=== PATIENT | male | born 1940 | race Caucasian/White ===

== ENCOUNTER 2021-03-21 05:57 | Day surgery (SDC) | payer OTHER, SELFPAY ==
[2021-03-13 13:43] LABS: BASOPHILS # (AUTO) 0.1 K/uL (0.00-0.22); BASOPHILS % (AUTO) 0.9 % (0.0-2.0); EOSINOPHILS # (AUTO) 0.3 K/uL (0-0.4); EOSINOPHILS % (AUTO) 4.4 % (0.0-4.0); HEMATOCRIT 41.1 % (36-52); HEMOGLOBIN 13.6 g/dL (12.0-18.0); LYMPHOCYTES % (AUTO) 14.7 % (20.5-51.1); MEAN CORPUSCULAR HEMOGLOBIN 31 pg (27-31); MEAN CORPUSCULAR HGB CONC 33 g/dL (33-37); MEAN CORPUSCULAR VOLUME 92.6 fL (80-94); MONOCYTES # (AUTO) 0.6 K/uL (0.8-1.0); MONOCYTES % (AUTO) 8.4 % (1.7-9.3); NEUTROPHILS # (AUTO) 4.8 K/uL (1.8-7.7); NEUTROPHILS % (AUTO) 71.6 % (42.2-75.2); PLATELET COUNT (AUTO) 235 K/uL (140-450); RED BLOOD CELL COUNT(AUTO) 4.45 MIL/uL (4.20-6.10); RED CELL DISTRIBUTION WIDTH 15.2 % (11.6-13.7); WHITE BLOOD COUNT (AUTO) 6.8 K/uL (4.8-10.8)
[2021-03-13 14:05] LABS: ALBUMIN 3.5 g/dL (3.4-5.0); ANION GAP 12.2 (8-16); ASPARTATE AMINOTRANSFERASE 21 U/L (15-37); CHLORIDE 110 mmol/L (98-107); CREATININE 2.4 mg/dL (0.6-1.3); GLUCOSE 107 mg/dL (74-106); POTASSIUM 4.2 mmol/L (3.5-5.1); PROTHROMBIN TIME 11.7 secs (10.8-13.4); SODIUM SERUM 143 mmol/L (136-145); TOTAL BILIRUBIN 0.6 mg/dL (0.0-1.0); UREA NITROGEN, BLOOD 22 mg/dL (7-18)
[~2021-03-21] VITALS: Ht 175.3 cm; Wt 81.6 kg
[2021-03-21] MEDS ORDERED: ceFAZolin 1,000 MG VIAL ONE ×2 (07:16→07:40)
[2021-03-21] MEDS ORDERED: BUPIVACAINE-MPF 0.5% 10 ML VIAL INJ ONE ×2 (07:24→07:40)
[2021-03-21] MEDS ORDERED: LIDOCAINE MPF 1% 0 ML ONE (07:24)
[2021-03-21] MEDS ORDERED: METOCLOPRAMIDE 10 MG/2 ML INJ VIAL ONE (07:40)
[2021-03-21] MEDS ORDERED: MIDAZOLAM 2 MG/2 ML VIAL ONE (07:40)
[2021-03-21] MEDS ORDERED: DEXAMETHASONE 4 MG/ML VIAL ONE (07:40)
[2021-03-21] MEDS ORDERED: ONDANSETRON 4 MG/2 ML VIAL ONE (07:40)
[2021-03-21] MEDS ORDERED: LIDOCAINE MPF 1% 15 ML ONE (07:40)
[2021-03-21] MEDS ORDERED: PROPOFOL 200 MG/20 ML VIAL IV ONE (07:40)
[2021-03-21] MEDS ORDERED: KETOROLAC 30 MG/ML VIAL ONE (07:40)
[2021-03-21] MEDS ORDERED: fentaNYL citrate 0.05 MG/ML VIAL ONE (07:40)
[2021-03-21] MEDS ORDERED: LIDOCAINE 2% 100 MG/5 ML SYR IVP ONE (07:40)
[2021-03-21] MEDS ORDERED: MEPERIDINE 25 MG/ML SYR IVP PRN (08:35)
[2021-03-21] MEDS ORDERED: ONDANSETRON 4 MG/2 ML VIAL IVP PRN (08:35)
[2021-03-21] MEDS ORDERED: diphenhydrAMINE 50 MG/ML VIAL IVP PRN (08:35)
[2021-03-21] MEDS ORDERED: BLOOD GLUCOSE MONITORING 1 DEV DEV FS SCH (08:35)
[2021-03-21] MEDS ORDERED: HYDROmorphone 1 MG/ML AMP IVP PRN (08:35)
== END 2021-03-21 11:20 | disposition home or self-care (01) ==
LOC: MDS 05:57 → MMU 06:07 → MDS 11:20
PROVIDERS: ATTEND Podiatrist Foot & Ankle Surgery
DX: M14.672 Charcot's joint, left ankle and foot (principal); I25.10 Atherosclerotic heart disease of native coronary artery without angina pectoris; I25.2 Old myocardial infarction; G47.33 Obstructive sleep apnea (adult) (pediatric); Z99.89 Dependence on other enabling machines and devices; Z95.5 Presence of coronary angioplasty implant and graft; Z79.01 Long term (current) use of anticoagulants; Z79.899 Other long term (current) drug therapy
CPT/HCPCS: 28104; 36415; 71045; 73630; 80053; 85025; 85610; 85730; 87426; 88304; 88311; J0690; J1100; J1885; J2001; J2250; J2405; J2704; J2765; J3010; J3490; J7030; J7060

== ENCOUNTER 2021-05-26 10:29 | Outpatient (CLI) | payer OTHER | END 2021-05-26 19:47 | disposition home or self-care (01) | LOC: MRD 10:29 | PROVIDERS: ATTEND Podiatrist Foot & Ankle Surgery | DX: M47.816 Spondylosis without myelopathy or radiculopathy, lumbar region (principal); M51.06 Intervertebral disc disorders with myelopathy, lumbar region; M43.16 Spondylolisthesis, lumbar region | CPT/HCPCS: 72100; 72170 ==

== ENCOUNTER 2021-12-01 07:21 | Day surgery (SDC) | payer OTHER ==
[2021-11-26 11:52] LABS: BASOPHILS # (AUTO) 0.1 K/uL (0.00-0.22); BASOPHILS % (AUTO) 0.5 % (0.0-2.0); EOSINOPHILS # (AUTO) 0.2 K/uL (0-0.4); EOSINOPHILS % (AUTO) 1.7 % (0.0-4.0); HEMOGLOBIN 12.5 g/dL (12.0-18.0); LYMPHOCYTES # (AUTO) 1.2 K/uL (2.0-11.5); LYMPHOCYTES % (AUTO) 12.5 % (20.5-51.1); MEAN CORPUSCULAR HEMOGLOBIN 32 pg (27-31); MEAN CORPUSCULAR HGB CONC 34 g/dL (33-37); MEAN CORPUSCULAR VOLUME 93.8 fL (80-94); MONOCYTES # (AUTO) 0.7 K/uL (0.8-1.0); MONOCYTES % (AUTO) 7.5 % (1.7-9.3); NEUTROPHILS # (AUTO) 7.5 K/uL (1.8-7.7); NEUTROPHILS % (AUTO) 77.8 % (42.2-75.2); PLATELET COUNT (AUTO) 226 K/uL (140-450); RED BLOOD CELL COUNT(AUTO) 3.94 MIL/uL (4.20-6.10); RED CELL DISTRIBUTION WIDTH 16.3 % (11.6-13.7); WHITE BLOOD COUNT (AUTO) 9.7 K/uL (4.8-10.8)
[2021-11-26 12:17] LABS: ALBUMIN 3.6 g/dL (3.4-5.0); ANION GAP 12.6 (8-16); ASPARTATE AMINOTRANSFERASE 28 U/L (15-37); CARBON DIOXIDE 23.3 mmol/L (21-32); CHLORIDE 111 mmol/L (98-107); GLUCOSE 112 mg/dL (74-106); POTASSIUM 3.9 mmol/L (3.5-5.1); SODIUM SERUM 143 mmol/L (136-145); TOTAL BILIRUBIN 0.9 mg/dL (0.0-1.0)
[2021-11-26 12:23] LABS: UREA NITROGEN, BLOOD 63 mg/dL (7-18)
[2021-11-26 12:24] LABS: PROTHROMBIN TIME 11.1 secs (10.8-13.4)
[~2021-12-01] VITALS: Ht 175.3 cm; Wt 79.4 kg
[2021-12-01] MEDS ORDERED: BUPIVACAINE-MPF 0.25% 30 ML VIAL INJ ONE (07:48)
[2021-12-01] MEDS ORDERED: LIDOCAINE 1% 500 MG/50 ML VIAL ONE (07:48)
[2021-12-01] MEDS ORDERED: PROPOFOL 200 MG/20 ML VIAL IV ONE (08:03)
[2021-12-01] MEDS ORDERED: fentaNYL citrate 0.05 MG/ML VIAL ONE (08:03)
[2021-12-01] MEDS ORDERED: SEVOFLURANE 250 ML BTL INH ONE (08:05)
[2021-12-01] MEDS ORDERED: ONDANSETRON 4 MG/2 ML VIAL IVP PRN (08:35)
[2021-12-01] MEDS ORDERED: NACL 0.9% 1,000 ML IV SCH (08:35)
[2021-12-01] MEDS ORDERED: diphenhydrAMINE 50 MG/ML VIAL IVP PRN (08:35)
[2021-12-01] MEDS ORDERED: HYDROmorphone 1 MG/ML AMP IVP PRN (08:35)
[2021-12-01] MEDS ORDERED: PIPERACILLIN/TAZOBACTAM 4.5 GM in DEXTROSE 5% 100 ML IV SCH (10:00)
[2021-12-01] MEDS ORDERED: ePHEDrine 50 MG/ML VIAL ONE (11:56)
== END 2021-12-01 11:45 | disposition home or self-care (01) ==
LOC: MDS 07:21 → MMU 07:23 → MDS 11:45
PROVIDERS: ATTEND Podiatrist Foot & Ankle Surgery
DX: L97.529 Non-pressure chronic ulcer of other part of left foot with unspecified severity (principal); M14.60 Charcot's joint, unspecified site; M77.41 Metatarsalgia, right foot; M89.272 Other disorders of bone development and growth, left ankle and foot; I13.0 Hypertensive heart and chronic kidney disease with heart failure and stage 1 through stage 4 chronic kidney disease, or unspecified chronic kidney disease; N18.4 Chronic kidney disease, stage 4 (severe); I50.9 Heart failure, unspecified; Z85.828 Personal history of other malignant neoplasm of skin; Z90.49 Acquired absence of other specified parts of digestive tract; Z96.659 Presence of unspecified artificial knee joint; Z79.899 Other long term (current) drug therapy
CPT/HCPCS: 15275; 28120; 36415; 71045; 73630; 80053; 85025; 85610; 85730; 87070; 87075; 87186; 87205; 87426; 88304; 88305; 88311; J0690; J2001; J2543; J2704; J3010; J3490; J7030; J7060; Q4148